=== PATIENT | male | born 1950 | race Caucasian/White ===

== ENCOUNTER 2019-11-27 09:22 | Day surgery (SDC) | payer MEDICARE, OTHER ==
[2019-11-27] VITALS (12 sets, daily range): BP systolic 92–147; BP diastolic 63–78; PULSE 47–83; TEMP 97.3–98.2
[~2019-11-27] VITALS: Ht 167.6 cm; Wt 116.7 kg
[2019-11-27] MEDS ORDERED: PRINIVIL5 MG PO (10:14)
[2019-11-27] MEDS ORDERED: ZESTRIL 10MG10 MG PO (10:14)
[2019-11-27] MEDS ORDERED: CRESTOR 10MG10 MG PO (10:14)
[2019-11-27] MEDS ORDERED: HCTZ 25MG TAB25 MG PO (10:15)
[2019-11-27] MEDS ORDERED: GLUCOSAMINE & C1 CA2 PO (10:16)
[2019-11-27] MEDS ORDERED: EPA FISH OIL1 SGL PO (10:16)
[2019-11-27] MEDS ORDERED: SAW PALMETTO S450 MG PO (10:16)
[2019-11-27] MEDS ORDERED: SAM E PO (10:17)
[2019-11-27] MEDS ORDERED: NATURAL E400 IU PO (10:18)
[2019-11-27] MEDS ORDERED: THE MEDICINE S200 M2 PO (10:19)
[2019-11-27] MEDS ORDERED: POTASSIUM PO (10:19)
[2019-11-27] MEDS ORDERED: B-12 250 MCG PO (10:20)
[2019-11-27] MEDS ORDERED: MAGNESIUM200 MG PO (10:21)
--- NOTE | 2019-11-27 10:22 | NUR ---
TO RM AT 0929- CALL LIGHT IN REACH. [employer]IA WILL RAILROAD [employer]ICE PATIENT UPON TIME OF DISCHARGE
[2019-11-27] MEDS ORDERED: NORCO 325 MG-51 TAB PO (13:08)
[2019-11-27] MEDS ORDERED: MOTRIN 600600 MG/TAB PO (13:09)
--- NOTE | 2019-11-27 13:35 | NUR ---
TO RM 8 PER CART FROM PACU. ALERT ORIENTED X3, TALKING TO STAFF. C/O MILD PAIN AND DENIES NAUSEA. 5 INCISION SITES CLEAN DRY INTACT. RECEIVED WATER AND TAKING SIPS.
--- NOTE | 2019-11-27 13:50 | NUR ---
C/O "MILD PAIN 1-09/08. RECEIVED CRACKERS.
--- NOTE | 2019-11-27 14:05 | NUR ---
ATE 100% AND TOLERATED WELL RECEIVED 2ND GLASS OF WATER.
--- NOTE | 2019-11-27 14:30 | NUR ---
AMBULATED TO BATHROOM WITH STAND BY ASSIST. VOIDED AND AMBULATED BACK TO . C/O INCRESING PAIN -03/08.
--- NOTE | 2019-11-27 14:40 | NUR ---
RECEIVED DISCHARGE INSTRUCTIONS AND VERBALIZED UNDERSTANDING. DISCONTINUED IV AND INT. STATED SHE WAS ANOTHER 20MIN OUT FROM HOSPITAL.
--- NOTE | 2019-11-27 14:50 | NUR ---
TO RM 6 PER CART FROM PACU. ALERT ORIENTED X3, TALKING WITH STAFF. AMBULATED TO BATHROOM WITH ASSIST. VOIDED AND AMBULATED BACK TO BED. C/O FEELING HOT/NAUSEATED AND STARTING TO HAVE MORE PAIN. COOL WASHCLOTH PLACED OVER FOREHEAD AND REMOVED BLANKET.
--- NOTE | 2019-11-27 15:05 | NUR ---
RECEIVED WATER AND TAKING SIPS. STATES THE NAUSEA IS SOME BETTER, BUT PAIN IS STILL THERE 3-11/06.
--- NOTE | 2019-11-27 15:17 | NUR ---
DISCHARGED PER WC BY NURSING STAFF TO PRIVATE CAR IN CARE OF STACIA.
--- NOTE | 2019-11-27 15:20 | NUR ---
RECEIVED CRACKERS AND TAKING SIPS OF WATER.
--- NOTE | 2019-11-27 15:35 | NUR ---
RECEIVED NORCO 5MG 1 TAB PER C/O PAIN -03/08. TAKING SIPS
--- NOTE | 2019-11-27 16:00 | NUR ---
AMBULATED TO BATHROOM. VOIDED AND AMBULATED BACK TO BED. C/O FEELING DIZZY. PATIENT QUIETLY RESTING.
--- NOTE | 2019-11-27 16:30 | NUR ---
PATIENT STATED SHE FELT BETTER. COMPLAINS OF WAVE OF PAIN AND BUT READY TO GO HOME.
--- NOTE | 2019-11-27 16:40 | NUR ---
RECEIVED DISCHARGE INSTRUCTIONS AND VERBALIZED UNDERSTANDING. DISCONTINUED IV AND INT- CATHETER INTACT PATIENT CALLED FOR RIDE HOME.
--- NOTE | 2019-11-27 17:19 | NUR ---
DISCHARGED PER WC BY NURSING STAFF TO PRIVATE CAR IN CARE OF .
== END 2019-11-27 15:23 | disposition home or self-care (01) ==
LOC: SDCO 09:22
DX: K80.12 Calculus of gallbladder with acute and chronic cholecystitis without obstruction (principal); E78.1 Pure hyperglyceridemia; E88.81 Metabolic syndrome and other insulin resistance; G47.33 Obstructive sleep apnea (adult) (pediatric); I10 Essential (primary) hypertension; M19.90 Unspecified osteoarthritis, unspecified site; F17.210 Nicotine dependence, cigarettes, uncomplicated; K82.8 Other specified diseases of gallbladder; J44.9 Chronic obstructive pulmonary disease, unspecified; K21.9 Gastro-esophageal reflux disease without esophagitis; E66.9 Obesity, unspecified; Z79.82 Long term (current) use of aspirin; Z88.8 Allergy status to other drugs, medicaments and biological substances; Z96.651 Presence of right artificial knee joint; Z68.41 Body mass index [BMI] 40.0-44.9, adult
CPT/HCPCS: J0330; J0690; J1100; J1885; J2405; J2704; J2710; J3010; J7120